=== PATIENT | female | born 1975 | race Asian ===

== ENCOUNTER 2016-07-25 17:39 | Emergency (ER) ==
[2016-07-25 17:52] VITALS: BP 119/75; TEMP 98.7; BMI 39.4
[2016-07-25] MEDS ORDERED: CORTISPORIN OTIC SUSP OT STA (18:32)
[2016-07-25] MEDS ORDERED: SOLU-MEDROL 125 MG IVP STA (18:32)
[2016-07-25] MEDS ORDERED: MORPHINE 4 MG/ML SYRINGE IVP STA (18:32)
[2016-07-25] MEDS ORDERED: AMOXIL PO STA (18:32)
[2016-07-25] MEDS ORDERED: SODIUM CHLORIDE 1,000 ML IV STA (18:32)
[2016-07-25] MEDS ORDERED: PROTONIX IV IVP STA (18:32)
[2016-07-25] MEDS ORDERED: ZOFRAN 4 MG/2 ML IVP STA (18:32)
[2016-07-25 18:52] LABS: BASOPHILS # (AUTO) 0.1 K/uL (0-0.2); BASOPHILS % (AUTO) 0.8 % (0.0-3.0); EOSINOPHILS # (AUTO) 0.7 K/ul (0.0-0.7); EOSINOPHILS % (AUTO) 7.7 % (0.0-7.0); HEMOGLOBIN 11.6 g/dl (12.0-16.0); IMMATURE GRANULOCYTE % (AUTO) 0.2 % (0.0-5.0); LYMPHOCYTES # (AUTO) 2.3 K/uL (0.60-3.4); LYMPHOCYTES % (AUTO) 26.9 (10.0-50.0); MEAN CORPUSCULAR HEMOGLOBIN 25.4 pg (27.0-31.0); MEAN CORPUSCULAR HGB CONC 32.2 (31.8-35.4); MEAN CORPUSCULAR VOLUME 78.9 fl (81.0-99.0); MONOCYTES # (AUTO) 0.5 K/uL (0.4-2.0); MONOCYTES % (AUTO) 5.7 (0-10); NEUTROPHILS # (AUTO) 5.1 K/ul (2.0-6.9); NEUTROPHILS % (AUTO) 58.7; PLATELET COUNT 230 10^3/uL (140-440); RED BLOOD COUNT 4.56 10^6/ul (4.20-5.40)
[2016-07-25 19:09] LABS: ALBUMIN 3.4 g/dL (3.4-5.0); ALBUMIN/GLOBULIN RATIO 1.03; ANION GAP 11.9; BILIRUBIN,TOTAL 1.05 mg/dL (0.00-1.20); BUN/CREATININE RATIO 15.85; CALCIUM 8.7 mg/dL (8.2-10.2); CREATININE 0.82 mg/dL (0.60-1.30); POTASSIUM 3.9 mmol/L (3.5-5.10); TOTAL PROTEIN 6.7 g/dL (6.4-8.2)
[2016-07-25 19:28] LABS: ADD URINE MICROSCOPIC NO; BILIRUBIN,URINE Negative (NEGATIVE); KETONES,URINE Negative (NEGATIVE); LEUKOCYTE ESTERASE ,URINE Negative (NEGATIVE); NITRITE,URINE Negative (NEGATIVE); PH,URINE 5.5 (5-9); PROTEIN,URINE Negative (NEGATIVE); URINE, BLOOD Negative (NEGATIVE)
--- NOTE | 2016-07-25 19:42 | CT ---
Exam: CT of the abdomen and pelvis without contrast History: Right upper quadrant pain Technique: [address] of the abdomen and pelvis without intravascular contrast FINDINGS: The lung bases are clear. No significant liver abnormality. The adrenals, pancreas and sp shereen are unremarkable. The stomach and hiatus are unremarkable.The gallbladder appears normal. Kidne ys and proximal collecting system are unremarkable. The appendix is normal. Bowel loops demonstrate normal caliber. No inflamatory change seen in the mesentery or retroperitoneum. Vascular structures appear normal by noncontrast CT. Markedly enlarged uterus measuring roughly 13 x 11 x 10 cm. Prior to ligation clips. Normal urinar y bladder. No inflammation of the pelvic fat. Normal pelvic bowel loops. No acute findings of the skeleton. Impression: 1. No inflammatory process, bowel or urinary obstruction is seen. 2. Enlarged uterus. Characterize with pelvic ultrasound.
--- NOTE | 2016-07-25 20:07 | ED.PDOC ---
General ED Provider: Dr. LATHA ELLIS Chief Complaint: Abdominal Pain Stated Complaint: Patient is a 41 year old who comes to the ER with right upper quadrant pain that is intermitent rates it at 10 last for 4 hours. Denies any associated nausea or vomiting. She also complains of right ear pain with purulent drainage and a generalized rash. Time Seen by Physician: 20:05 Mode of Arrival: Walk-In Information Source: Patient Exam Limitations: No limitations Nursing and Triage Documentation Reviewed and Agree: Yes GI Complaint Exam - Abdominal Pain Complaint/Exam Onset: Gradual Duration: 7 days Symptoms Are: Still present Timing: Constant Initial Severity: Moderate Current Severity: Moderate Location of Pain: RUQ Radiates To: Reports: Back Character: Reports: Aching, Throbbing Aggravating: Reports: Food Alleviating: Reports: None Associated Signs and Symptoms: Denies: Diaphoresis, Fever, Cough, Chest pain, Dizziness, Back pain, Constipation, Blood in stool, Dysuria, Urinary frequency, Decreased urine output, Decreased appetite, Vaginal bleeding, Vaginal discharge , Nausea, Vomiting, Diarrhea, Sore throat, Decreased activity AAA Risk Factors: Reports: None Cardiac Risk Factors: Reports: None Ectopic Risk Factors: Reports: Tubal ligation Ovarian Torsion Risk Factors: Reports: Reproductive age Surgical Obstruction Risk Factors: Reports: None Related Surgical History: Reports: None Patient Rh Status: Negative Abdominal Findings: Absent: Pulsatile mass, Abdominal distention, Rebound tenderness, McBurney's Point tender, Inguinal swelling Differential Diagnoses: Appendicitis, Bowel Obstruction, Constipation, Gastroenteritis, Hepatitis, Pancreatitis, Irritable Bowel Syndrome, Renal Colic , Ureteral Stone, Ischemic Bowel, PUD, UTI Review of Systems - Review Of Systems Constitutional: Reports: No symptoms Eyes: Reports: No symptoms Ears, Nose, Mouth, Throat: Reports: Ear pain, Ear discharge Respiratory: Reports: No symptoms Cardiac: Reports: No symptoms GI: Reports: Abdominal pain : Reports: No symptoms Musculoskeletal: Reports: No symptoms Skin: Reports: Rash Neurological: Reports: No symptoms Endocrine: Reports: No symptoms Hematologic/Lymphatic: Reports: No symptoms All Other Systems: Reviewed and Negative Past Medical History - Past Medical History Endocrine: Reports: None Cardiovascular: Reports: None Respiratory: Reports: None Hematological: Reports: None Gastrointestinal: Reports: None Genitourinary: Reports: None Neuro/Psych: Reports: None Musculoskeletal: Reports: None Cancer: Reports: None Last Menstrual Period: 06/27 - Surgical History General Surgical History: Reports: None - Family History Family History: Reports: None - Social History Smoking Status: Never smoker Hx Substance Use: No Alcohol Screening: None Physical Exam - Physical Exam Appearance: Ill-appearing, Obese Ill-appearing: Mild Pain Distress: Severe Eyes: MADDI, EOMI, Conjunctiva clear ENT: Erythema Neck: Supple Respiratory: Airway patent, Breath sounds clear, Breath sounds equal, Respirations nonlabored GI/: Soft, Tender (right upper quadrant ) Musculoskeletal: Normal strength, ROM intact, No edema, No calf tenderness Skin: Warm, Dry Neurological: Sensation intact, Motor intact, Reflexes intact, Cranial nerves intact, Alert, Oriented Psychiatric: Anxious Interpretation - Radiology Interpretation Radiology Interpretation By: Radiologist Radiology Results: Negative Exam Interpreted: CT Scan Critical Care Note - Critical Care Note Total Time (mins): 0 Course - Course Hematology/Chemistry: 07/25/16 16:40 07/25/16 16:40 Orders, Labs, Meds: Lab Review 07/25/16 07/25/16 16:40 19:21 WBC 8.60 RBC 4.56 Hgb 11.6 L Hct 36.0 L MCV 78.9 L MCH 25.4 L MCHC 32.2 RDW Coeff of Varsha 14.8 Plt Count 230 Immature Gran % (Auto) 0.2 Neut % (Auto) 58.7 Lymph % (Auto) 26.9 [place] % (Auto) 5.7 Eos % (Auto) 7.7 H Baso % (Auto) 0.8 Immature Gran # (Auto) 0.0 Neut # 5.1 Lymph # 2.3 [place] # 0.5 Eos # 0.7 Baso # 0.1 Sodium 138 Potassium 3.9 Chloride 107 Carbon Dioxide 23 Anion Gap 11.9 BUN 13 Creatinine 0.82 Estimated GFR (MDRD) 77.00 BUN/Creatinine Ratio 15.85 Glucose 83 Calcium 8.7 Total Bilirubin 1.05 AST 14 L ALT 15 Alkaline Phosphatase 67 Total Protein 6.7 Albumin 3.4 Globulin 3.3 Albumin/Globulin Ratio 1.03 Amylase 46 Lipase 12 Urine Color Yellow Urine Clarity Clear Urine pH 5.5 Ur Specific [place] 1.020 Urine Protein Negative Urine Glucose (UA) Negative Urine Ketones Negative Urine Blood Negative Urine Nitrite Negative Urine Bilirubin Negative Urine Urobilinogen 0.2 Ur Leukocyte Esterase Negative Orders Category Date Time Status ED IV/MEDIPORT/POWERPORT .ONCE EMERGENCY 04/29/17 18:32 Active AMYLASE Stat LAB 07/25/16 16:40 Completed CBC W/ AUTO DIFF Stat LAB 07/25/16 16:40 Completed COMPREHENSIVE METABOLIC PANEL Stat LAB 07/25/16 16:40 Completed LIPASE Stat LAB 07/25/16 16:40 Completed URINALYSIS C & S IF INDICATED Stat LAB 07/25/16 19:21 Completed 0.9 % Sodium Chloride [Saline Flush] MEDS 07/25/16 18:32 Discontinued 1 syr IVF PRN PRN Amoxicillin [Amoxil] MEDS 07/25/16 18:32 Discontinued 500 mg PO ONCE STA Methylprednisolone Sod Succ/Pf [Solu-Medrol 125 mg] MEDS 07/25/16 18:32 Discontinued 125 mg IVP ONCE STA Morphine Sulfate [Morphine 4 mg/ml Syringe] MEDS 07/25/16 18:32 Discontinued 4 mg IVP ONCE STA Neomycin/Polymyxin B/Hc Otic [Cortisporin Otic Susp] MEDS 07/25/16 18:32 Discontinued 4 drop OT ONCE STA Ondansetron HCl/Pf [Zofran 4 mg/2 ml] MEDS 07/25/16 18:32 Discontinued 4 mg IVP ONCE STA Pantoprazole Sodium [Protonix IV] MEDS 07/25/16 18:32 Discontinued 40 mg IVP ONCE STA Sodium Chloride 0.9% [Sodium Chloride] 1,000 ml MEDS 07/25/16 18:[address] ABD/PEL WO RENAL STONE PROT Stat RADS 07/25/16 18:32 Completed Medications Discontinued Medications Generic Name Dose Route Start Last Admin Trade Name Freq PRN Reason Stop Dose Admin Amoxicillin 500 mg 07/25/16 18:32 07/25/16 19:22 Amoxil PO 07/25/16 18:33 500 mg ONCE STA Administration Sodium Chloride 1,000 mls @ 1,000 mls/hr 07/25/16 18:32 07/25/16 19:23 Sodium Chloride IV 07/25/16 19:31 1,000 mls/hr BOLUS STA Administration Methylprednisolone Sodium Succinate 125 mg 07/25/16 18:32 07/25/16 19:22 Solu-Medrol 125 Mg IVP 07/25/16 18:33 125 mg ONCE STA Administration Morphine Sulfate 4 mg 07/25/16 18:32 07/25/16 19:23 Morphine 4 Mg/Ml Syringe IVP 07/25/16 18:33 4 mg ONCE STA Administration Neomycin/Polymyxin/Hydrocortisone 4 drop 07/25/16 18:32 07/25/16 19:24 Cortisporin Otic Susp OT 07/25/16 18:33 4 drop ONCE STA Administration Ondansetron HCl 4 mg 07/25/16 18:32 07/25/16 19:22 Zofran 4 Mg/2 Ml IVP 07/25/16 18:33 4 mg ONCE STA Administration Pantoprazole Sodium 40 mg 07/25/16 18:32 07/25/16 19:23 Protonix Iv IVP 07/25/16 18:33 40 mg ONCE STA Administration Sodium Chloride 1 syr 07/25/16 18:32 07/25/16 19:23 Saline Flush IVF 1 syr PRN PRN Administration To flush IV Vital Signs: Temp Pulse Resp BP Pulse Ox 07/25/16 17:43 98.7 F 67 20 119/75 97 Departure - Departure Time of Disposition: 20:05 Disposition: HOME SELF-CARE Discharge Problem: Abdominal pain, Rash of body Otitis externa Qualifiers: Otitis externa type: diffuse Laterality: right Chronicity: acute Qualifier Code : (H60.311) Diffuse otitis externa, right ear Otitis media Qualifiers: Otitis media type: other nonsuppurative Laterality: right Chronicity: acute Recurrence: not specified as recurrent Qualifier Code: (H65.191) Other acute nonsuppurative otitis media, right ear Instructions: Abdominal Pain (ED), Urticaria (ED), Otitis Media (ED), Otitis Externa (ED) Condition: Stable Pt referred to PMD for follow-up: Yes Additional Instructions: Push fluids Follow up with the clinic in 3 days Take medications as prescribed. Use ear drops to the right ear every 4 hours for 7-10 days Prescriptions: Amoxicillin [Amoxil] 500 mg PO TID #30 capsule Methylprednisolone [Medrol Dosepak] 4 mg PO DIRECTED #1 pkg Pantoprazole Sodium [Protonix] 40 mg PO DAILY #30 tablet. Allergies/Adverse Reactions: Allergies No Known Allergies Allergy (Unverified 07/25/16 17:51) Home Medications: Ambulatory Orders Amoxicillin [Amoxil] 500 mg PO TID #30 capsule 07/25/16 Methylprednisolone [Medrol Dosepak] 4 mg PO DIRECTED #1 pkg 07/25/16 Pantoprazole Sodium [Protonix] 40 mg PO DAILY #30 tablet. 07/25/16 Disposition Discussed With: Patient, Family
== END 2016-07-25 20:17 | disposition home or self-care (01) ==
LOC: ED 17:39
DX: R10.11 Right upper quadrant pain (principal); H60.311 Diffuse otitis externa, right ear; H65.191 Other acute nonsuppurative otitis media, right ear; R21 Rash and other nonspecific skin eruption
CPT/HCPCS: 36415; 74176; 80053; 81001; 82150; 83690; 85025; 96360; 96375; 99284

== ENCOUNTER 2016-10-23 13:13 | Outpatient (CLI) ==
[2016-10-23 13:32] LABS: BASOPHILS # (AUTO) 0.1 K/uL (0-0.2); BASOPHILS % (AUTO) 1.1 % (0.0-3.0); EOSINOPHILS # (AUTO) 0.9 K/ul (0.0-0.7); EOSINOPHILS % (AUTO) 10.8 % (0.0-7.0); HEMATOCRIT 36.8 % (37.0-47.0); HEMOGLOBIN 12.1 g/dl (12.0-16.0); IMMATURE GRANULOCYTE % (AUTO) 0.1 % (0.0-5.0); LYMPHOCYTES # (AUTO) 1.9 K/uL (0.60-3.4); LYMPHOCYTES % (AUTO) 21.9 (10.0-50.0); MEAN CORPUSCULAR HEMOGLOBIN 26.2 pg (27.0-31.0); MEAN CORPUSCULAR HGB CONC 32.9 (31.8-35.4); MEAN CORPUSCULAR VOLUME 79.8 fl (81.0-99.0); MONOCYTES # (AUTO) 0.5 K/uL (0.4-2.0); MONOCYTES % (AUTO) 5.3 (0-10); NEUTROPHILS # (AUTO) 5.2 K/ul (2.0-6.9); NEUTROPHILS % (AUTO) 60.8; PLATELET COUNT 234 10^3/uL (140-440); RED BLOOD COUNT 4.61 10^6/ul (4.20-5.40)
[2016-10-23 14:09] LABS: ALBUMIN 3.5 g/dL (3.4-5.0); ANION GAP 12.2; BILIRUBIN,TOTAL 0.87 mg/dL (0.00-1.20); BUN/CREATININE RATIO 10.84; CALCIUM 9.1 mg/dL (8.2-10.2); CHOL/HDL RATIO 3.5 (4.5-5.5); CREATININE 0.83 mg/dL (0.60-1.30); POTASSIUM 4.2 mmol/L (3.5-5.10)
== END 2016-10-23 13:14 | disposition home or self-care (01) ==
LOC: LAB 13:13
PROVIDERS: ATTEND Internal Medicine
DX: E66.9 Obesity, unspecified (principal); Z13.9 Encounter for screening, unspecified
CPT/HCPCS: 36415; 80053; 80061; 83036; 84443; 85025

== ENCOUNTER 2017-02-24 16:31 | Outpatient (CLI) ==
[2017-02-24 16:52] LABS: BASOPHILS # (AUTO) 0.1 K/uL (0-0.2); BASOPHILS % (AUTO) 1.2 % (0.0-3.0); EOSINOPHILS # (AUTO) 0.6 K/ul (0.0-0.7); EOSINOPHILS % (AUTO) 8.6 % (0.0-7.0); HEMATOCRIT 38.1 % (37.0-47.0); HEMOGLOBIN 12.8 g/dl (12.0-16.0); IMMATURE GRANULOCYTE % (AUTO) 0.3 % (0.0-5.0); LYMPHOCYTES # (AUTO) 2.2 K/uL (0.60-3.4); LYMPHOCYTES % (AUTO) 29.7 (10.0-50.0); MEAN CORPUSCULAR HEMOGLOBIN 27.8 pg (27.0-31.0); MEAN CORPUSCULAR HGB CONC 33.6 (31.8-35.4); MEAN CORPUSCULAR VOLUME 82.6 fl (81.0-99.0); MONOCYTES # (AUTO) 0.5 K/uL (0.4-2.0); MONOCYTES % (AUTO) 6.2 (0-10); PLATELET COUNT 234 10^3/uL (140-440); RED BLOOD COUNT 4.61 10^6/ul (4.20-5.40); WHITE BLOOD COUNT 7.47 K/ul (4.6-10.2)
[2017-02-24 17:31] LABS: ALBUMIN 3.5 g/dL (3.4-5.0); ALBUMIN/GLOBULIN RATIO 0.97; ANION GAP 9.9; BILIRUBIN,TOTAL 0.76 mg/dL (0.00-1.20); BUN/CREATININE RATIO 8.51; CALCIUM 9.2 mg/dL (8.2-10.2); CHOL/HDL RATIO 4.9 (4.5-5.5); CREATININE 0.94 mg/dL (0.60-1.30); POTASSIUM 3.9 mmol/L (3.5-5.10); TOTAL PROTEIN 7.1 g/dL (6.4-8.2)
== END 2017-02-24 16:32 | disposition home or self-care (01) ==
LOC: LAB 16:31
PROVIDERS: ATTEND Internal Medicine
DX: D64.9 Anemia, unspecified (principal); E66.9 Obesity, unspecified; E03.9 Hypothyroidism, unspecified
CPT/HCPCS: 36415; 80053; 80061; 83036; 84439; 84443; 85025

== ENCOUNTER 2017-12-01 16:03 | Outpatient (CLI) | END 2017-12-01 16:04 | disposition home or self-care (01) | LOC: LAB 16:03 | PROVIDERS: ATTEND Internal Medicine | DX: D64.9 Anemia, unspecified (principal); E03.9 Hypothyroidism, unspecified; E66.9 Obesity, unspecified | CPT/HCPCS: 36415; 80053; 80061; 83036; 84439; 84443; 85025 ==

== ENCOUNTER 2018-01-05 20:04 | Emergency (ER) ==
[2018-01-05 20:08] VITALS: BP 135/84; TEMP 97.1; BMI 40.2
[2018-01-05] MEDS ORDERED: DIFLUCAN PO STA (20:42)
--- NOTE | 2018-01-05 20:45 | ED.PDOC ---
General ED Provider: Dr. LATHA ELLIS Chief Complaint: Vaginal Discharge/Swelling Stated Complaint: Patient is a 42 year old female who complains of vaginal itching and scratched it to. Now has pain when she urinates. Denies any other symptoms. Has not been sexually active. LMP begining of the month Time Seen by Physician: 20:35 Mode of Arrival: Walk-In Information Source: Patient Primary Care Provider: TORI DELA CRUZ Nursing and Triage Documentation Reviewed and Agree: Yes Does patient meet sepsis criteria?: No System Inflammatory Response Syndrome: Not Applicable Sepsis Protocol: For patient's 13 years and over: Temp is 96.8 and below OR 101 and greater Pulse >90 BPM Resp >20/minute Acutely Altered Mental Status Are patient's symptoms suggestive of a new infection, such as: -Pneumonia -Skin, Soft Tissue -Endocarditis -UTI -Bone, Joint Infection -Implantable Device -Acute Abdominal Infection -Wound Infection -Meningitis -Blood Stream Catheter Infection -Unknown Review of Systems - Review Of Systems Constitutional: Reports: No symptoms Eyes: Reports: No symptoms Ears, Nose, Mouth, Throat: Reports: No symptoms Respiratory: Reports: No symptoms Cardiac: Reports: No symptoms GI: Reports: No symptoms : Reports: Burning, Other (itching ) Musculoskeletal: Reports: No symptoms Skin: Reports: Rash, Other (hardy area rash and itching.) Neurological: Reports: No symptoms Endocrine: Reports: No symptoms Hematologic/Lymphatic: Reports: No symptoms All Other Systems: Reviewed and Negative Past Medical History - Past Medical History Endocrine: Reports: None Cardiovascular: Reports: None Respiratory: Reports: None Hematological: Reports: None Gastrointestinal: Reports: None Genitourinary: Reports: None Neuro/Psych: Reports: None Musculoskeletal: Reports: None Cancer: Reports: None Last Menstrual Period: dec 27 - Surgical History General Surgical History: Reports: None - Family History Family History: Reports: None - Social History Smoking Status: Never smoker Hx Substance Use: No Alcohol Screening: None Physical Exam - Physical Exam Appearance: Well-appearing, No pain distress, Well-nourished Eyes: MADDI, EOMI, Conjunctiva clear ENT: Ears normal, Nose normal, Oropharynx normal Respiratory: Airway patent, Breath sounds clear, Breath sounds equal, Respirations nonlabored Cardiovascular: RRR, Pulses normal, No rub, No murmur GI/: Soft, Nontender, No masses, Bowel sounds normal, No Organomegaly Musculoskeletal: Normal strength, ROM intact, No edema, No calf tenderness Skin: Warm, Dry, Normal color Neurological: Sensation intact, Motor intact, Reflexes intact, Cranial nerves intact, Alert, Oriented Psychiatric: Anxious Critical Care Note - Critical Care Note Total Time (mins): 0 Course - Course Orders, Labs, Meds: Lab Review 01/05/18 01/05/18 20:50 20:50 Urine Color Yellow Urine Clarity Clear Urine pH 6.0 Ur Specific [place] <=1.005 Urine Protein Negative Urine Glucose (UA) Negative Urine Ketones Negative Urine Blood Negative Urine Nitrite Negative Urine Bilirubin Negative Urine Urobilinogen 0.2 Ur Leukocyte Esterase Trace Ur Squamous Epith Cells Pending Urine Test Negative Orders Category Date Time Status URINALYSIS C & S IF INDICATED Stat LAB 01/05/18 20:50 Results URINE Stat LAB 01/05/18 20:50 Completed Fluconazole [Diflucan] MEDS 01/05/18 20:42 Discontinued 100 mg PO ONCE STA Medications Discontinued Medications Generic Name Dose Route Start Last Admin Trade Name Estrellita PRN Reason Stop Dose Admin Fluconazole 100 mg 01/05/18 20:42 01/05/18 20:50 Diflucan PO 01/05/18 20:43 100 mg ONCE STA Administration Vital Signs: Temp Pulse Resp BP Pulse Ox 01/05/18 20:04 97.1 F L 71 18 135/84 97 Departure - Departure Time of Disposition: 20:59 Disposition: HOME SELF-CARE Discharge Problem: Yeast infection of the vagina Instructions: Yeast Infection (ED) Condition: Fair Pt referred to PMD for follow-up: Yes IPMP verified?: No Additional Instructions: Take Fluconazole next week if symptoms return Prescriptions: Fluconazole [Diflucan] 150 mg PO ONCE #1 tablet Allergies/Adverse Reactions: Allergies No Known Allergies Allergy (Verified 01/05/18 20:08) Home Medications: Ambulatory Orders Fluconazole [Diflucan] 150 mg PO ONCE #1 tablet 01/05/18 Levothyroxine Sodium [Synthroid] 50 mcg PO QDAC 01/05/18
[2018-01-05 20:56] LABS: URINE PREGNANCY TEST NEGATIVE (NEGATIVE)
== END 2018-01-05 21:04 | disposition home or self-care (01) ==
LOC: ED 20:04
DX: B37.3 Candidiasis of vulva and vagina (principal)
CPT/HCPCS: 81001; 81025; 99283

== ENCOUNTER 2018-07-14 14:42 | Outpatient (CLI) | END 2018-07-14 14:43 | disposition home or self-care (01) | LOC: LAB 14:42 | PROVIDERS: ATTEND Internal Medicine | DX: E03.9 Hypothyroidism, unspecified (principal); E78.5 Hyperlipidemia, unspecified | CPT/HCPCS: 36415; 80053; 80061; 83036; 84443; 85025 ==

== ENCOUNTER 2018-09-12 18:46 | Emergency (ER) ==
[2018-09-12 18:50] VITALS: BP 121/81; TEMP 97.9; BMI 42.5
--- NOTE | 2018-09-12 18:59 | ED.PDOC ---
General ED Provider: Dr. GUILLE SILVERMAN-ER Chief Complaint: Sore Throat Stated Complaint: carmen had yellow sinus drainage with cough Time Seen by Physician: 18:57 Mode of Arrival: Walk-In Information Source: Patient, Family Exam Limitations: No limitations Primary Care Provider: TORI BARKER Nursing and Triage Documentation Reviewed and Agree: Yes Does patient meet sepsis criteria?: No System Inflammatory Response Syndrome: Not Applicable Sepsis Protocol: For patient's 13 years and over: Temp is 96.8 and below OR 101 and greater Pulse >90 BPM Resp >20/minute Acutely Altered Mental Status Are patient's symptoms suggestive of a new infection, such as: -Pneumonia -Skin, Soft Tissue -Endocarditis -UTI -Bone, Joint Infection -Implantable Device -Acute Abdominal Infection -Wound Infection -Meningitis -Blood Stream Catheter Infection -Unknown Respiratory Complaint Exam - Respiratory Complaint/Exam Onset/Duration: 3 days Symptoms Are: Still present Timing: Constant Initial Severity: Mild Current Severity: Mild Location: Nose Character: Reports: Productive cough Aggravating: Reports: URI Associated Signs and Symptoms: Reports: URI, Nasal congestion, Sinus discomfort Status Asthmaticus Risk Factors: Reports: None Home Oxygen Use: No Recent Stress Test: No Recent Echo/LV Function: No Current Antibiotic Use: No Current Asthma Medication Use: No Respiratory Distress: None Inadequate Respiratory Effort: No Dysphagia Present: No Stridor Present: No JVD Present: No Accessory Muscle Use: No Retractions: Not Present Diminished Breath Sounds: No Sinus Tenderness: Maxillary Grunting Respirations: No Kussmaul Respirations: No Differential Diagnoses: Sinusitis, URI Review of Systems - Review Of Systems Constitutional: Reports: No symptoms Eyes: Reports: No symptoms Ears, Nose, Mouth, Throat: Reports: Nose discharge Respiratory: Reports: Cough Cardiac: Reports: No symptoms GI: Reports: No symptoms : Reports: No symptoms Musculoskeletal: Reports: No symptoms Skin: Reports: No symptoms Neurological: Reports: No symptoms Endocrine: Reports: No symptoms Hematologic/Lymphatic: Reports: No symptoms All Other Systems: Reviewed and Negative Past Medical History - Past Medical History Previously Healthy: No Endocrine: Reports: None Cardiovascular: Reports: None Respiratory: Reports: None Hematological: Reports: None Gastrointestinal: Reports: None Genitourinary: Reports: None Neuro/Psych: Reports: None Musculoskeletal: Reports: None Cancer: Reports: None Last Menstrual Period: august 29 - Surgical History General Surgical History: Reports: None - Family History Family History: Reports: None - Social History Smoking Status: Never smoker Hx Substance Use: No Alcohol Screening: None Physical Exam - Physical Exam Appearance: Well-appearing Eyes: MADDI, EOMI, Conjunctiva clear ENT: Rhinorrhea Neck: Supple Respiratory: Airway patent Cardiovascular: RRR, Pulses normal, No rub, No murmur GI/: Soft, Nontender, No masses, Bowel sounds normal, No Organomegaly Musculoskeletal: Normal strength Skin: Warm, Dry, Normal color Neurological: Sensation intact, Motor intact, Reflexes intact, Cranial nerves intact, Alert, Oriented Psychiatric: Affect appropriate, Mood appropriate Critical Care Note - Critical Care Note Total Time (mins): 0 Course - Course Vital Signs: Temp Pulse Resp BP Pulse Ox 09/12/18 18:46 97.9 F 79 20 121/81 97 Departure - Departure Time of Disposition: 18:58 Disposition: HOME SELF-CARE Discharge Problem: Bronchitis Sinusitis Qualifiers: Sinusitis location: unspecified location Chronicity: acute Recurrence: not specified as recurrent Qualified Code(s): J01.90 - Acute sinusitis, unspecified Instructions: Rhinosinusitis (ED) Condition: Good Pt referred to PMD for follow-up: Yes IPMP verified?: No Additional Instructions: f/u with dr barker if not improving Allergies/Adverse Reactions: Allergies No Known Allergies Allergy (Verified 09/12/18 18:50) Home Medications: Ambulatory Orders Levothyroxine Sodium [Synthroid] 50 mcg PO QDAC 01/05/18 Amoxicillin/Potassium Clav [Augmentin 875-125 mg Tab] 1 tab PO Q12HR #20 tablet 09/12/18 Atorvastatin Calcium [Lipitor] 10 mg PO BEDTIME 09/12/18 Benzonatate [Tessalon Perles] 200 mg PO TID #30 capsule 09/12/18 Methylprednisolone [Medrol Dosepak] 4 mg PO DIRECTED #1 pkg 09/12/18 Disposition Discussed With: Patient, Family
== END 2018-09-12 19:04 | disposition home or self-care (01) ==
LOC: ED 18:46
DX: J40 Bronchitis, not specified as acute or chronic (principal); J01.90 Acute sinusitis, unspecified; J02.9 Acute pharyngitis, unspecified
CPT/HCPCS: 99282